=== PATIENT | female | born 1970 | race Caucasian/White ===

== ENCOUNTER 2019-07-12 05:29 | Inpatient (IN) | payer MEDICAID ==
[2019-07-12] MEDS ORDERED: Gabapentin 300 MG Cap PO ONE (05:45)
[2019-07-12] MEDS ORDERED: Celecoxib 200 MG Cap PO ONE (05:45)
[2019-07-12] MEDS ORDERED: Acetaminophen 500 MG Tab PO ONE (05:45)
[2019-07-12] MEDS ORDERED: Scopolamine 1.5 MG Transdermal Patch TOP SCH (05:45)
[2019-07-12] MEDS ORDERED: Dextrose 5%-Lactated Ringers 1,000 ML IV SCH (06:00)
[2019-07-12] MEDS ORDERED: cefOXitin 2 GM Vial ONE (07:00)
[2019-07-12] MEDS ORDERED: Propofol 200 MG/20 ML SDV ONE (07:06)
[2019-07-12] MEDS ORDERED: Ondansetron 4 MG/2 ML SDV ONE (07:06)
[2019-07-12] MEDS ORDERED: Dexamethasone 4 MG/ML SDV ONE (07:06)
[2019-07-12] MEDS ORDERED: Succinylcholine 200 MG/10 ML MDV ONE (07:06)
[2019-07-12] MEDS ORDERED: Rocuronium 50 MG/5 ML Vial ONE (07:06)
[2019-07-12] MEDS ORDERED: Glycopyrrolate 0.2 MG/ML 5 ML MDV ONE (07:06)
[2019-07-12] MEDS ORDERED: fentaNYL 250 MCG/5 ML SDV ONE ×2 (07:06→07:29)
[2019-07-12] MEDS ORDERED: Neostigmine Methylsulfate 1 MG/ML 5 ML Syringe ONE (07:06)
[2019-07-12] MEDS ORDERED: cefOXitin 2 GM in Sodium Chloride 0.9% 50 ML IV ONE (07:15)
[2019-07-12] MEDS ORDERED: Ketamine 500 MG/5 ML MDV IV SCH (07:30)
[2019-07-12] MEDS ORDERED: Ketamine 50 MG in Sodium Chloride 0.9% 49.5 ML IV SCH (07:30)
[2019-07-12] MEDS ORDERED: Magnesium Sulfate 4.5 GM in Sodium Chloride 0.9% 100 ML IV ONE (07:30)
[2019-07-12] MEDS ORDERED: fentaNYL 100 MCG/2 ML SDV ONE (08:09)
[2019-07-12] MEDS ORDERED: hydrOXYzine HCL 100 MG/2 ML SDV IM ONE (09:28)
[2019-07-12] MEDS ORDERED: fentaNYL 100 MCG/2 ML SDV IVPUSH ONE (09:39)
[2019-07-12] MEDS ORDERED: oxyCODONE 5 MG Tab PO PRN (10:56)
[2019-07-12] MEDS ORDERED: HYDROmorphone 1 MG/ML Syringe IV PRN (10:56)
[2019-07-12] MEDS ORDERED: diphenhydrAMINE 50 MG/ML SDV IVPUSH PRN (10:56)
[2019-07-12] MEDS ORDERED: HYDROmorphone 0.5 MG/0.5 ML Syringe IVPUSH PRN (10:56)
[2019-07-12] MEDS ORDERED: Metoclopramide 10 MG/2 ML SDV IVPUSH PRN (10:56)
[2019-07-12] MEDS ORDERED: hydrOXYzine HCL 100 MG/2 ML SDV IM PRN (10:56)
[2019-07-12] MEDS ORDERED: Calcium Gluconate 10% 1 GM/10 ML SDV IVPUSH PRN (10:56)
[2019-07-12] MEDS ORDERED: Ondansetron 4 MG/2 ML SDV IVPUSH PRN (10:56)
[2019-07-12] MEDS ORDERED: Labetalol 20 MG/4 ML Syringe IVPUSH PRN (10:56)
[2019-07-12] MEDS ORDERED: Acetaminophen 500 MG Tab PO PRN (10:56)
[2019-07-12] MEDS ORDERED: Cyclobenzaprine 10 MG Tab PO PRN (10:56)
[2019-07-12] MEDS: Dextrose 5%-Lactated Ringers 1,000 ML IV SCH ×2 (11:03→22:45)
[2019-07-12] MEDS: cefOXitin 2 GM in Sodium Chloride 0.9% 50 ML IV SCH ×3 (12:19→23:38)
[2019-07-12] MEDS ORDERED: Pantoprazole 40 MG Vial IVPUSH SCH (12:30)
[2019-07-12] MEDS ORDERED: Naloxone 0.4 MG/ML SDV ONE (12:55)
[2019-07-12] MEDS: Acetaminophen 500 MG Tab PO SCH ×2 (13:33→22:44)
[2019-07-12] MEDS: Gabapentin 250 MG/5 ML Solution ML 470 ML Bottle PO SCH ×2 (13:33→20:51)
[2019-07-12] MEDS ORDERED: MVI, Adult with Vitamin K 10 ML, Thiamine 200 MG, Chromium/Copper/Mang/Selen/Zn 1 ML in... IV SCH ×4 (16:00)
[2019-07-12] MEDS: Heparin Sodium 5,000 Units/ML Vial SUBCUT SCH (16:16)
[2019-07-13] MEDS ORDERED: Iopamidol 612 MG/ML 50 ML SDV PO STA (01:20)
[2019-07-13] MEDS: Heparin Sodium 5,000 Units/ML Vial SUBCUT SCH ×2 (03:10→15:52)
[2019-07-13 04:49] LABS: HEMOGLOBIN A1C 6.3 % (4.5-6.2)
[2019-07-13] MEDS: Acetaminophen 500 MG Tab PO SCH ×4 (05:08→20:59)
[2019-07-13] MEDS: Dextrose 5%-Lactated Ringers 1,000 ML IV SCH (05:09)
[2019-07-13] MEDS: cefOXitin 2 GM in Sodium Chloride 0.9% 50 ML IV SCH (06:20)
[2019-07-13] MEDS ORDERED: Ondansetron 4 MG Tab.DIS PO PRN (06:44)
[2019-07-13] MEDS ORDERED: Dextrose 5%-Lactated Ringers 1,000 ML IV SCH (06:45)
[2019-07-13] MEDS ORDERED: Escitalopram 20 MG Tab PO ONE (06:47)
--- NOTE | 2019-07-13 07:27 | PN ---
DATE OF SERVICE: 07/13/2019 SUBJECTIVE: Vannessa is postoperative day #1. Her pain has been controlled. She is up, ambulating, afebrile. Oral intake 695. Urine output 1600. ZEKE drain put out 125 of a light pink drainage. REVIEW OF SYSTEMS: Remainder of review of systems negative for any pertinent positives and negatives. OBJECTIVE: GENERAL: Vannessa Stratton is a pleasant 49-year-old female. VITAL SIGNS: TPR at 02:01 is 96.8; 112; 20; blood pressure 106/47; O2 is 91% on room air. HEENT: Negative. NECK: Supple. HEART: Regular rate and rhythm. LUNGS: Clear. ABDOMEN: Dressing dry and intact. Abdominal binder is on. EXTREMITIES: Without peripheral edema. SCDs are on. ASSESSMENT: Laparoscopic Paloma-en-Y gastric bypass surgery, liver biopsy, repair of diaphragmatic hernia for morbid obesity, hepatomegaly, and diaphragmatic hernia. Date of surgery: 07/12/2019. Surgeon: Bubba Streeter MD. PLAN: 1. Decrease IV to 100 mL/h. 2. Step 2 gastric bypass diet with no cereal. 3. Dressing off, may shower. 4. Communication order: 3 med cups per hour. Record at bedside. 5. Lexapro 20 mg p.o. daily, to give 1 now because she did not get it last night and feels like she usually takes it at night and she did not get it last night, so she would like to get 1 now and get another 1 at bedtime because she feels that she needs it. 6. Synthroid 50 mcg p.o. 30 minutes before breakfast. 7. Zofran ODT 4 mg sublingual every 4 hours p.r.n. nausea and vomiting. 8. Good pulmonary toilet. 9. We will evaluate p.r.n. or in a.m. Shona Lira PA-C /[id number]
[2019-07-13] MEDS: Escitalopram 20 MG Tab PO SCH (08:20)
[2019-07-13] MEDS: Levothyroxine 50 MCG Tab PO SCH (08:21)
[2019-07-13] MEDS: SCOPOLAMINE PATCH CHECK TOP SCH (08:22)
[2019-07-13] MEDS ORDERED: Levothyroxine 50 MCG Tab PO SCH (08:30)
[2019-07-13] MEDS: Gabapentin 250 MG/5 ML Solution ML 470 ML Bottle PO SCH ×3 (08:31→20:25)
[2019-07-13] MEDS ORDERED: Escitalopram 20 MG Tab PO SCH (09:00)
[2019-07-13] MEDS ORDERED: Celecoxib 200 MG Cap PO SCH (09:00)
--- NOTE | 2019-07-13 10:32 | CR ---
[facility] HISTORY: Postbariatric surgery FINDINGS: Patient swallowed water-soluble contrast. Upright views of the abdomen show no evidence of extravasation or obstruction. There is some mild small bowel distention likely related to some postoperative ileus. IMPRESSION: Status post bariatric surgery No extravasation or obstruction seen
[2019-07-13] MEDS: Pantoprazole 40 MG Tab.CR PO SCH (11:47)
[2019-07-14] MEDS: Heparin Sodium 5,000 Units/ML Vial SUBCUT SCH (05:00)
[2019-07-14] MEDS: Acetaminophen 500 MG Tab PO SCH (05:08)
[2019-07-14] MEDS: Levothyroxine 50 MCG Tab PO SCH (07:51)
[2019-07-14] MEDS: Pantoprazole 40 MG Tab.CR PO SCH (07:51)
--- NOTE | 2019-07-14 08:27 | DISCH ---
ADMISSION DIAGNOSES: Morbid obesity, BMI 54, anxiety, depression, low back pain, obstructive sleep apnea, uses a CPAP, hypothyroidism, cervical radiculopathy, diabetes. Hemoglobin A1c is 6.3. DISCHARGE DIAGNOSES: Laparoscopic Paloma-en-Y gastric bypass surgery, liver biopsy, repair of diaphragmatic hernia for morbid obesity, hepatomegaly, and diaphragmatic hernia. Date of surgery: 07/12/2019. Surgeon: Bubba Streeter MD. HISTORY: Vannessa Stratton is a pleasant 49-year-old female with longstanding history of morbid obesity and increasing comorbidities. After preoperative evaluation and discussion of possible risks and possible complications, she wished to proceed with surgical procedure. HOSPITAL COURSE: Vannessa had her surgery on 07/12/2019. She had no operative complications. On postop day #1, upper GI was normal. She was started on a step-2 gastric bypass with no cereal. Home medications were started, and IV was decreased to 100 mL per hour. On postop day 2, ZEKE drain was discontinued. She received B12, 1000 mcg IM injection. DIETARY INSTRUCTION: Activity good. Vital signs stable, afebrile. Oral intake 2030. Urine output is 3800. Faint pruritic rash noted on forearms and is spreading. ALLERGIES: TO SULFA, CELEBREX. CELEBREX WAS DISCONTINUED. She has had no bowel movement. PHYSICAL EXAMINATION: GENERAL: Vannessa Stratton is a pleasant 49-year-old female. VITAL SIGNS: Height is 5 feet 5 inches, weight is 324 pounds, BMI is 54. TPR at 0017, 98, , 16, blood pressure 110/50. HEENT: Negative. NECK: Supple. HEART: Regular rate and rhythm. LUNGS: Clear. ABDOMEN: Suture intact. ZEKE drain will be removed prior to discharge. Abdominal binder has been on. EXTREMITIES: Without peripheral edema. DISPOSITION: Discharged to home. CONDITION: Stable and improving. FOLLOWUP: Followup appointment with Shona Lira PA-C, on 07/25/2019 at 9:15 a.m. HOME MEDICATIONS: 1. Tylenol 1000 mg every 8 hours. 2. Milk of magnesia 30 mL, take 1 dose tonight and 1 tomorrow. Two doses were sent home with the patient. 3. Zofran ODT 4 mg every 4 hours p.r.n. nausea, #30. She is to stop all vitamins and supplements until first postop appointment. Continue home medications, levothyroxine 50 mcg p.o. before breakfast, Lexapro 20 mg p.o. daily. DIET AFTER DISCHARGE: Step-2 gastric bypass with no cereal for 2 weeks until 07/27/2019. OTHER ACTIVITY: No lifting over 10 pounds for 2 weeks. Walk at least 6 times daily inside your house. Driving: Do not drive for 1 week. Shower/bathing: May shower. Notify provider if any fever, increased pain, swelling, redness, nausea, or vomiting. Wound incision care: Keep site clean and dry. Wear abdominal binder for 2 weeks and then as tolerated. Use incentive spirometer 10 times every hour while awake.
[2019-07-14] MEDS ORDERED: Cyanocobalamin (Vitamin B12) 1,000 MCG/ML SDV IM ONE (09:00)
[2019-07-14] MEDS ORDERED: Magnesium Hydroxide 400 MG/5 ML Susp 30 ML Cup PO ONE (09:05)
[2019-07-14] MEDS: Escitalopram 20 MG Tab PO SCH (09:26)
[2019-07-14] MEDS: Gabapentin 250 MG/5 ML Solution ML 470 ML Bottle PO SCH (09:26)
[2019-07-14] MEDS: SCOPOLAMINE PATCH CHECK TOP SCH (09:33)
[2019-07-14] MEDS ORDERED: Magnesium Hydroxide 400 MG/5 ML Susp 30 ML Cup PO PRN (18:00)
--- NOTE | 2019-07-18 13:16 | OR ---
DATE OF PROCEDURE: 07/12/2019 SURGEON: Bubba Streeter MD PREOPERATIVE DIAGNOSIS: Morbid obesity. POSTOPERATIVE DIAGNOSES: 1. Morbid obesity. 2. Marked hepatomegaly. 3. Paraesophageal diaphragmatic hernia. OPERATIVE PROCEDURES: Diagnostic laparoscopy with: 1. Laparoscopic Paloma-en-Y gastric bypass with long limb gastroenterostomy (37274). 2. Kameron-Cut needle liver biopsy (83625). 3. Repair of paraesophageal diaphragmatic hernia (97462). ANESTHESIA: General. GAS METER MECHANIC: Shona Lira PA-C INDICATIONS FOR PROCEDURE: This is a 49-year-old female, presenting with longstanding morbid obesity and increasingly significant comorbidities. After preoperative evaluation and discussion, she wished to proceed with a gastric bypass procedure. Potential risks including bleeding, infection, leaks from various GI tract closures, problems with bowel obstruction over time, as well as the possibility of cardiopulmonary, septic, or hemorrhagic complications leading to were discussed, and the patient wishes to proceed. DETAILS OF PROCEDURE: The patient was taken to the operating room and placed in a supine position. After general endotracheal anesthesia was induced, she was converted to a lithotomy position and the abdomen prepped and draped. At 15 cm inferior and 5 cm left of the xiphoid process, a transverse incision was made. Peritoneal cavity was entered under direct vision with an Optiview trocar, inflated to 15 mmHg pressure with CO2. Bilateral transversus abdominis plane blocks were then placed, along with 5 additional trocars across the upper and mid abdomen. Liver was noted to be markedly enlarged and fatty infiltrated. Kameron-Cut needle biopsy was obtained from left lobe of liver. Minimal bleeding from the biopsy sites was controlled with electrocautery. At this point, the omentum was divided in the midline up to the level of the transverse colon. This allowed identification of the small bowel at the ligament of Treitz. Small bowel was then traced out 150 cm distal to that point, where it was divided transversely with a BRAN stapler. The small bowel was then traced out an additional 150 cm, where the [id number] enteroenterostomy was accomplished with internal firing of the Endo-BRAN 60 mm stapler. Common opening was then closed transversely with the same stapler and the angles of anastomosis and mesenteric defect approximated with some 0 Ethibond sutures reinforced with fibrin sealant. Divided end of the Paloma limb was from the mesentery for a few centimeters, which allowed an antecolic position of the Paloma limb up to the gastroesophageal junction without tension. The liver was then retracted anteriorly, and the patient was noted to have a moderate-sized paraesophageal diaphragmatic hernia with prolapse of some perigastric fat and gastric fundus, along with a tongue of omentum, in the plane anterior to the course of the esophagus. This was reduced and the peritoneum overlying incised and reflected downward. An anterior repair of the diaphragmatic hernia was then accomplished with 0 Ethibond sutures reinforced with PTFE pledgets. The gastrointestinal balloon catheter was then inflated to 15 mL and pulled up snugly against the EG junction. Gastric wall over the apex balloon was then marked with electrocautery and balloon catheter deflated and pulled up into the esophagus. The lesser omental tissue adjacent to the gastric cardia was then incised, allowing dissection behind the stomach at that level. Pouch formation was initiated with transverse firing of the BRAN stapler at the level of the cauterized christa in the gastric cardia and then completed with additional BRAN staple firings up to and through the angle of His. Upon completion of the pouch, both staple lines were noted to be intact. The anvil of a 25 mm EEA stapler was attached to the [place] sump type tube. The latter was brought down through the mouth and taken out through a small opening in the gastric pouch, allowing the anvil likewise to be pulled down to within the gastric pouch. The divided end of the Paloma limb was then opened and the main body of the EEA stapler was passed several centimeters in the lumen of the small bowel, brought up the anvil, and united with it, thus creating the gastrojejunostomy. Upon removal of the stapler, double donuts of mucosa were noted within it. Small bowel was closed off with a vascular staple line. Gastrojejunostomy was reinforced with some 3-0 Vicryl seromuscular stitch, along with fibrin sealant. The leak test was accomplished with injection of 120 mL of air in the gastric pouch while it was submerged with cefoxitin-containing saline solution. A single Mark-Granados drain was then placed through the left lateral trocar site and then positioned up against the gastrojejunostomy and from there into the splenic fossa. With no further problems noted, trocars were removed and the peritoneal cavity deflated. Incisions were closed with some 4- 0 Vicryl skin stitch, as was also used to affix the drain. The patient was taken to the recovery room in satisfactory condition. Physician administration assistant, Shona Lira, played an essential role in assisting in this case, helping to position the patient, retract structures as needed, as well as suturing and cutting sutures when indicated. Her presence improved patient safety and decreased operative time. Bubba Streeter MD /[id number]
== END 2019-07-14 09:45 | disposition home or self-care (01) | DRG 621 ==
LOC: JP.MS 05:29 → JP.SDS 05:29 → EDSTATUS 08:25 → JP.MS 09:05
PROVIDERS: ADMIT Surgery; ATTEND Surgery
PROC: 0D164ZA Bypass Stomach to Jejunum, Percutaneous Endoscopic Approach (ICD-10-PCS; principal; 2019-07-12)
PROC: 0FB24ZX Excision of Left Lobe Liver, Percutaneous Endoscopic Approach, Diagnostic (ICD-10-PCS; 2019-07-12)
PROC: 0BQT4ZZ Repair Diaphragm, Percutaneous Endoscopic Approach (ICD-10-PCS; 2019-07-12)
DX: E66.01 Morbid (severe) obesity due to excess calories (principal); Z68.43 Body mass index [BMI] 50.0-59.9, adult; F41.9 Anxiety disorder, unspecified; F32.9 Major depressive disorder, single episode, unspecified; G47.33 Obstructive sleep apnea (adult) (pediatric); M54.5 Low back pain; E03.9 Hypothyroidism, unspecified; M54.12 Radiculopathy, cervical region; R16.0 Hepatomegaly, not elsewhere classified; K44.9 Diaphragmatic hernia without obstruction or gangrene; Z88.2 Allergy status to sulfonamides; Z79.890 Hormone replacement therapy; Z79.899 Other long term (current) drug therapy
CPT/HCPCS: 36415; 74240; 74240-26; 80053; 81025; 83036; 83735; 84100; 85025; 86850; 86900; 86901; 88307; 88313; 94762; A9270-GY; C9113; J0171; J0330; J0694; J1100; J1644; J2310; J2405; J2704; J2710; J2795; J3010; J3410; J3411; J3420; J3475; J3490; J7050; J7121; Q9967